=== PATIENT | female | born 1990 | race Two or more races ===

== ENCOUNTER 2018-10-13 18:06 | Emergency (ER) | payer OTHER ==
[2018-10-13] MEDS ORDERED: Sodium Chloride 0.9% 1,000 ML IV ONE (18:08)
[2018-10-13] MEDS ORDERED: Albuterol/Ipratropium 3.0-0.5 MG/3 ML Neb Soln NEB ONE (18:27)
[2018-10-13 18:51] LABS: CHLORIDE,CL 103 mmol/L (98-107); SODIUM,NA 136 mmol/L (136-145)
--- NOTE | 2018-10-13 19:58 | CR ---
CHEST 2 VIEWS INDICATION: Cough. IMPRESSION: Normal heart size and vascular pattern. Lungs are clear. No pneumothorax or pleural effusion. Dictated by Abelardo Fernandes MD @ Oct 13 2018 7:55PM Signed by Dr. Abelardo Fernandes @ Oct 13 2018 7:55PM
--- NOTE | 2018-10-13 20:11 | US ---
INDICATION : and right upper quadrant pain TECHNIQUE : Ultrasound of the limited abdomen. Grayscale and color doppler. COMPARISON : No comparison FINDINGS: Gallbladder: Multiple layering stones are present in the gallbladder. Common bile duct: 3 mm. Right kidney: 10.6 cm. Pancreas: Difficult visualization due to overlying bowel gas. Gallbladder wall thickness: 2 mm upper normal. IMPRESSION: 1. Gallstones. No gallbladder wall thickening. 2. No ductal dilatation. 3. The supervisor hard candy did not mention if there was a sonographic Eason sign. Dictated by Abelardo Fernandes MD @ Oct 13 2018 8:09PM Signed by Dr. Abelardo Fernandes @ Oct 13 2018 8:09PM
--- NOTE | 2018-10-13 20:13 | US ---
INDICATION : Twenty-three week with abdominal pain TECHNIQUE : Ultrasound of the limited obstetrical. Grayscale and color doppler. COMPARISON : No comparison FINDINGS: position: position is vertex. Placenta: Placenta is anterior. No signs of a previa. heart rate: heart rate is 144 beats per minute. Cervix: The cervix is 3.2 cm in close. ZULMA: 9.4 cm normal. The single deepest pocket measures 3.4 centimeters. IMPRESSION: No acute sonographic or /placental abnormality. Cephalic position and normal amniotic fluid volume. Dictated by Abelardo Fernandes MD @ Oct 13 2018 8:09PM Signed by Dr. Abelardo Fernandes @ Oct 13 2018 8:11PM
--- NOTE | 2018-10-13 20:24 | EDM.PDOC ---
ED HPI GENERAL MEDICAL PROBLEM - General Chief Complaint: Chest Pain Stated Complaint: CHEST PAIN Time Seen by Provider: 10/13/18 18:08 Source of Information: Reports: Patient History Limitations: Reports: No Limitations - History of Present Illness INITIAL COMMENTS - FREE TEXT/NARRATIVE: HISTORY AND PHYSICAL: History of present illness: Patient is a 28-year-old female who presents to the ED today with concern of right upper quadrant pain that occurred just prior to arrival to the ED. Patient states she was napping and awoke concern of having 10 out of 10 right upper quadrant pain. Patient states she is approximately 23 weeks gestation and follows with Dr. Lam at [facility]. Patient states she's has had a normal with care. Patient states she has had some slight nausea with the pain but denies any other symptoms. Patient denies any health history. Patient denies fever, chills, chest pain, shortness of breath, or cough. Denies headache, neck stiff ness, change in vision, syncope, or near syncope. Denies vomiting, diarrhea, constipation, or dysuria. Has not noted any blood in urine or stool. Patient has been eating and drinking appropriately prior to onset of symptoms. Review of systems: As per history of present illness and below otherwise all systems reviewed and negative. Past medical history: As per history of present illness and as reviewed below otherwise noncontributory. Surgical history: As per history of present illness and as reviewed below otherwise noncontributory. Social history: See social history for further information Family history: As per history of present illness and as reviewed below otherwise noncontributory. Physical exam: General: Patient is alert, oriented, and in no acute distress. Patient sitting comfortably on exam table. HEENT: Atraumatic, normocephalic, pupils equal and reactive bilaterally, negative for conjunctival pallor or scleral icterus, mucous membranes moist, TMs normal bilaterally, throat clear, neck supple, nontender, trachea midline. No drooling or trismus noted. No meningeal signs. No hot potato voice noted. Lungs: Mild wheezing to auscultation of the lung bases, breath sounds equal bilaterally, chest nontender. Heart: S1S2, regular rate and rhythm without overt murmur Abdomen: Soft, nondistended. Severe pain to palpation of the right upper quadrant with guarding. Positive Eason sign. Negative for masses or hepatosplenomegaly. Negative for costovertebral tenderness. Pelvis: Stable nontender. Genitourinary: Deferred. Rectal: Deferred. Skin: Intact, warm, dry. No lesions or rashes noted. Extremities: Atraumatic, negative for cords or calf pain. Neurovascular unremarkable. Neuro: Awake, alert, oriented. Cranial nerves II through XII unremarkable. Cerebellum unremarkable. Motor and sensory unremarkable throughout. Exam nonfocal. Notes: Dr. Ridley verbally involved in patient care. Dr. Prado, obgyn unit control worker, consult on patient and discussed using [place] for narcotic management for breakthrough pain and Tylenol for [id number] pain. 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 Voices understanding and is agreeable to plan of care. Denies any further questions or concerns at this time. Diagnostics: CBC, CMP, UA, EKG, troponin, chest x-ray, right upper quadrant ultrasound, limited OB ultrasound, lipase Therapeutics: saline, duoneb Prescription: [place] (#15) Impression: RUQ pain, unspecified cannot r/o biliary dyskinesia Plan: 1. Low fat diet. You can use Tylenol for mild-moderate pain. [place] for moderate to severe pain. 2. Follow up with your obgyn and primary care provider as discussed. Return to ED as needed and as discussed. Definitive disposition and diagnosis as appropriate pending reevaluation and review of above. chest Pain Score (Numeric/FACES): 7 - Related Data Allergies Allergy/AdvReac Type Severity Reaction Status Date / Time No Known Allergies Allergy Verified 01/29/16 13:40 Home Meds: Home Meds Acetaminophen/HYDROcodone [[place] 325-5 MG] 1 tab PO Q6H PRN #15 tablet 10/13/18 [Rx] Pnv No.95/Ferrous Fum/Folic AC [ Caplet] 1 tab PO DAILY 10/13/18 [ History] Sertraline [Zoloft] 75 mg PO DAILY 10/13/18 [History] Past Medical History Respiratory History: Reports: Asthma Social & Family History - Tobacco Use Smoking Status *Q: Never Smoker - Recreational Drug Use Recreational Drug Use: No ED ROS GENERAL - Review of Systems Review Of Systems: ROS reveals no pertinent complaints other than HPI. ED EXAM, GENERAL - Physical Exam Exam: See Below (See dictation) Course - Vital Signs Last Recorded V/S: Last Vital Signs Temp 36.2 C 10/13/18 19:24 Pulse 88 10/13/18 20:26 Resp 15 10/13/18 20:26 BP 116/72 10/13/18 20:26 Pulse Ox 96 10/13/18 20:26 - Orders/Labs/Meds Orders: Active Orders 24 hr Category Date Time Status Cardiac Monitoring [RC] . DIRECTED Care 10/13/18 18:08 Active EKG Documentation Completion [RC] STAT Care 10/13/18 18:08 Active Labs: Laboratory Tests 10/13/18 10/13/18 10/13/18 Range/Units 18:15 18:15 18:15 WBC 10.30 (4.0-11.0) K/uL RBC 4.03 L (4.30-5.90) M/uL Hgb 12.6 (12.0-16.0) g/dL Hct 37.3 (36.0-46.0) % MCV 92.6 (80.0-98.0) fL MCH 31.3 (27.0-32.0) pg MCHC 33.8 (31.0-37.0) g/dL RDW Std Deviation 44.5 (28.0-62.0) fl RDW Coeff of Miguel 13 (11.0-15.0) % Plt Count 298 (150-400) K/uL MPV 9.70 (7.40-12.00) fL Neut % (Auto) 65.5 (48.0-80.0) % Lymph % (Auto) 26.5 (16.0-40.0) % [place] % (Auto) 5.9 (0.0-15.0) % Eos % (Auto) 1.9 (0.0-7.0) % Baso % (Auto) 0.2 (0.0-1.5) % Neut # (Auto) 6.7 H (1.4-5.7) K/uL Lymph # (Auto) 2.7 H (0.6-2.4) K/uL [place] # (Auto) 0.6 (0.0-0.8) K/uL Eos # (Auto) 0.2 (0.0-0.7) K/uL Baso # (Auto) 0.0 (0.0-0.1) K/uL Nucleated RBC % 0.0 /100WBC Nucleated RBCs # 0 K/uL Sodium 136 (136-145) mmol/L Potassium 3.6 (3.5-5.1) mmol/L Chloride 103 (98-107) mmol/L Carbon Dioxide 23.5 (21.0-32.0) mmol/L BUN 6 L (7.0-18.0) mg/dL Creatinine 0.5 L (0.6-1.0) mg/dL Est Cr Clr Drug Dosing 156.81 mL/min Estimated GFR (MDRD) > 60.0 ml/min Glucose 100 (74-106) mg/dL Calcium 9.1 (8.5-10.1) mg/dL Total Bilirubin 0.2 (0.2-1.0) mg/dL AST 18 (15-37) IU/L ALT 26 (14-63) IU/L Alkaline Phosphatase 105 (46-116) U/L Troponin I < 0.050 (0.000-0.056) ng/mL Total Protein 7.3 (6.4-8.2) g/dL Albumin 2.9 L (3.4-5.0) g/dL Globulin 4.4 H (2.6-4.0) g/dL Albumin/Globulin Ratio 0.7 L (0.9-1.6) Amylase 54 (25-115) U/L Lipase 172 (73-393) U/L Urine Color Urine Appearance Urine pH (5.0-8.0) Ur Specific [place] (1.001-1.035) Urine Protein (NEGATIVE) mg/dL Urine Glucose (UA) (NEGATIVE) mg/dL Urine Ketones (NEGATIVE) mg/dL Urine Occult Blood (NEGATIVE) Urine Nitrite (NEGATIVE) Urine Bilirubin (NEGATIVE) Urine Urobilinogen (<2.0) EU/dL Ur Leukocyte Esterase (NEGATIVE) Urine HCG, Qual (NEGATIVE) 10/13/18 10/13/18 Range/Units 18:30 18:30 WBC (4.0-11.0) K/uL RBC (4.30-5.90) M/uL Hgb (12.0-16.0) g/dL Hct (36.0-46.0) % MCV (80.0-98.0) fL MCH (27.0-32.0) pg MCHC (31.0-37.0) g/dL RDW Std Deviation (28.0-62.0) fl RDW Coeff of Miguel (11.0-15.0) % Plt Count (150-400) K/uL MPV (7.40-12.00) fL Neut % (Auto) (48.0-80.0) % Lymph % (Auto) (16.0-40.0) % [place] % (Auto) (0.0-15.0) % Eos % (Auto) (0.0-7.0) % Baso % (Auto) (0.0-1.5) % Neut # (Auto) (1.4-5.7) K/uL Lymph # (Auto) (0.6-2.4) K/uL [place] # (Auto) (0.0-0.8) K/uL Eos # (Auto) (0.0-0.7) K/uL Baso # (Auto) (0.0-0.1) K/uL Nucleated RBC % /100WBC Nucleated RBCs # K/uL Sodium (136-145) mmol/L Potassium (3.5-5.1) mmol/L Chloride (98-107) mmol/L Carbon Dioxide (21.0-32.0) mmol/L BUN (7.0-18.0) mg/dL Creatinine (0.6-1.0) mg/dL Est Cr Clr Drug Dosing mL/min Estimated GFR (MDRD) ml/min Glucose (74-106) mg/dL Calcium (8.5-10.1) mg/dL Total Bilirubin (0.2-1.0) mg/dL AST (15-37) IU/L ALT (14-63) IU/L Alkaline Phosphatase (46-116) U/L Troponin I (0.000-0.056) ng/mL Total Protein (6.4-8.2) g/dL Albumin (3.4-5.0) g/dL Globulin (2.6-4.0) g/dL Albumin/Globulin Ratio (0.9-1.6) Amylase (25-115) U/L Lipase (73-393) U/L Urine Color YELLOW Urine Appearance CLEAR Urine pH 6.0 (5.0-8.0) Ur Specific [place] 1.020 (1.001-1.035) Urine Protein NEGATIVE (NEGATIVE) mg/dL Urine Glucose (UA) NEGATIVE (NEGATIVE) mg/dL Urine Ketones 15 H (NEGATIVE) mg/dL Urine Occult Blood NEGATIVE (NEGATIVE) Urine Nitrite NEGATIVE (NEGATIVE) Urine Bilirubin NEGATIVE (NEGATIVE) Urine Urobilinogen 0.2 (<2.0) EU/dL Ur Leukocyte Esterase NEGATIVE (NEGATIVE) Urine HCG, Qual POSITIVE (NEGATIVE) Meds: Medications Discontinued Medications Generic Name Dose Route Start Last Admin Trade Name Freq PRN Reason Stop Dose Admin Albuterol/Ipratropium 3 ml 10/13/18 18:27 10/13/18 18:34 Duoneb 3.0-0.5 Mg/3 Ml NEB 10/13/18 18:28 3 ml ONETIME ONE Administration Sodium Chloride 1,000 mls @ 999 mls/hr 10/13/18 18:08 10/13/18 18:26 Normal Saline IV 10/13/18 19:08 999 mls/hr BOLUS ONE Administration Departure - Departure Time of Disposition: 20:25 Disposition: Home, Self-Care 01 Clinical Impression: Right upper quadrant abdominal pain Qualifiers: Weeks of gestation: 23 weeks Qualified Code(s): Z3A.23 - 23 weeks gestation of - Discharge Information Prescriptions: Acetaminophen/HYDROcodone [[place] 325-5 MG] 1 tab PO Q6H PRN #15 tablet PRN Reason: Pain (Severe 7-10) Instructions: Gallbladder Eating Plan, Second Trimester of , Easy-to- Read Referrals: PCP,Unknown [Primary Care Provider] - Forms: ED Department Discharge Additional Instructions: The following information is given to patients seen in the emergency department who are being discharged to home. This information is to outline your options for follow-up care. We provide all patients seen in our emergency department with a follow-up referral. The need for follow-up, as well as the timing and circumstances, are variable depending upon the specifics of your emergency department visit. If you don't have a primary care physician on staff, we will provide you with a referral. We always advise you to contact your personal physician following an emergency department visit to inform them of the circumstance of the visit and for follow-up with them and/or the need for any referrals to a consulting specialist. The emergency department will also refer you to a specialist when appropriate. This referral assures that you have the opportunity for follow-up care with a specialist. All of these measure are taken in an effort to provide you with optimal care, which includes your follow-up. Under all circumstances we always encourage you to contact your private physician who remains a resource for coordinating your care. When calling for follow-up care, please make the office aware that this follow-up is from your recent emergency room visit. If for any reason you are refused follow-up, please contact the [facility] Emergency Department at and asked to speak to the emergency department charge nurse. [facility] Primary Care [address], [place] [address] [facility] [address] [place] [id number] [facility] [address] [place] [address] 1. Low fat diet. You can use Tylenol for mild-moderate pain. [place] for moderate to severe pain. 2. Follow up with your obgyn and primary care provider as discussed. Return to ED as needed and as discussed. - My Orders Last 24 Hours: My Active Orders 10/13/18 18:08 Cardiac Monitoring [RC] . DIRECTED EKG Documentation Completion [RC] STAT - Assessment/Plan Last 24 Hours: My Active Orders 10/13/18 18:08 Cardiac Monitoring [RC] . DIRECTED EKG Documentation Completion [RC] STAT
== END 2018-10-13 20:39 | disposition home or self-care (01) ==
LOC: MW.ED 18:06
DX: O99.89 Other specified diseases and conditions complicating pregnancy, childbirth and the puerperium (principal); R10.11 Right upper quadrant pain; Z3A.23 23 weeks gestation of pregnancy; Z79.899 Other long term (current) drug therapy
CPT/HCPCS: 36415; 71046; 76705; 76815; 80053; 81003; 81025; 82150; 83690; 84484; 85025; 93005; 96360; 99285; J7040; J7620-GY

== ENCOUNTER 2019-01-29 11:00 | Inpatient (IN) | payer OTHER ==
[2019-01-29] MEDS ORDERED: Lidocaine 1% 50 ML MDV INJECT PRN (11:29)
[2019-01-29] MEDS ORDERED: Methylergonovine 0.2 MG/1 ML Amp IM PRN (11:29)
[2019-01-29] MEDS ORDERED: Sodium Chloride 0.9% 2.5 ML Syringe FLUSH PRN (11:29)
[2019-01-29] MEDS ORDERED: Nalbuphine 10 MG/1 ML Vial IVPUSH PRN (11:29)
[2019-01-29] MEDS ORDERED: Misoprostol 200 MCG Tab PO PRN (11:29)
[2019-01-29] MEDS ORDERED: Sodium Chloride 0.9% 10 ML SDV IV PRN (11:29)
[2019-01-29] MEDS ORDERED: Tranexamic Acid 1,000 MG in Sodium Chloride 0.9% 100 ML IV PRN (11:29)
[2019-01-29] MEDS ORDERED: Carboprost Tromethamine 250 MCG/1 ML Amp IM PRN (11:29)
[2019-01-29] MEDS ORDERED: Terbutaline 1 MG/ML SDV SUBCUT PRN (11:29)
[2019-01-29] MEDS ORDERED: Sodium Chloride 0.9% 10 ML Syringe FLUSH PRN (11:29)
[2019-01-29] MEDS ORDERED: Butorphanol 1 MG/ML SDV IVPUSH PRN (11:29)
[2019-01-29] MEDS ORDERED: Water For Irrigation,Sterile 1,000 ML Container IRR PRN (11:29)
[2019-01-29] MEDS ORDERED: Oxytocin/0.9 % Sodium Chloride 30 UNIT/500 ML BAG IV SCH ×2 (11:30)
[2019-01-29] MEDS ORDERED: hydrOXYzine Pamoate 25 MG Cap ONE (11:58)
[2019-01-29] MEDS ORDERED: hydrOXYzine Pamoate 25 MG Cap PO ONE (12:02)
[2019-01-29] MEDS: Misoprostol 25 MCG (1/4 of 100 MCG) Tab VAG PRN ×3 (12:10→20:06)
[2019-01-30] MEDS: Misoprostol 25 MCG (1/4 of 100 MCG) Tab VAG PRN ×2 (00:30→04:44)
[2019-01-30] MEDS: Lactated Ringers 1,000 ML IV SCH ×4 (09:12→23:04)
[2019-01-30] MEDS ORDERED: Ondansetron 4 MG/2 ML SDV IVPUSH PRN (13:54)
--- NOTE | 2019-01-30 15:56 | PCM.PREANE ---
Preanesthetic Assessment - Anesthesia/Transfusion/Family Hx Anesthesia History: No Prior Anesthesia Family History of Anesthesia Reaction: No Transfusion History: No Prior Transfusion(s) - Review of Systems General: No Symptoms Pulmonary: No Symptoms Cardiovascular: No Symptoms Gastrointestinal: No Symptoms Neurological: No Symptoms Other: Reports: None - Physical Assessment Height: 5 ft 5 in Weight: 93.44 kg ASA Class: 2 Mental Status: Alert & Oriented x3 Dentition: Reports: Normal Dentition ROM/Head Extension: Full Lungs: Clear to Auscultation, Normal Respiratory Effort Cardiovascular: Regular Rhythm - Lab Values: Laboratory Last Values WBC 8.60 K/uL (4.0-11.0) 01/29/19 11:50 RBC 3.99 M/uL (4.30-5.90) L 01/29/19 11:50 Hgb 12.1 g/dL (12.0-16.0) 01/29/19 11:50 Hct 35.7 % (36.0-46.0) L 01/29/19 11:50 MCV 89.5 fL (80.0-98.0) 01/29/19 11:50 MCH 30.3 pg (27.0-32.0) 01/29/19 11:50 MCHC 33.9 g/dL (31.0-37.0) 01/29/19 11:50 RDW Std Deviation 45.0 fl (28.0-62.0) 01/29/19 11:50 RDW Coeff of Miguel 14 % (11.0-15.0) 01/29/19 11:50 Plt Count 246 K/uL (150-400) 01/29/19 11:50 MPV 11.20 fL (7.40-12.00) 01/29/19 11:50 Nucleated RBC % 0.0 /100WBC 01/29/19 11:50 Nucleated RBCs # 0 K/uL 01/29/19 11:50 Blood Type A POSITIVE 01/29/19 11:50 Antibody Screen NEGATIVE 01/29/19 11:50 - Allergies Allergies/Adverse Reactions: Allergies Allergy/AdvReac Type Severity Reaction Status Date / Time No Known Allergies Allergy Verified 01/29/16 13:40 - Acknowledgements Anesthesia Type Planned: Epidural Pt an Appropriate Candidate for the Planned Anesthesia: Yes Alternatives and Risks of Anesthesia Discussed w Pt/Guardian: Yes Pt/Guardian Understands and Agrees with Anesthesia Plan: Yes PreAnesthesia Questionnaire Cardiovascular History: Reports: None Respiratory History: Reports: None, Asthma Gastrointestinal History: Reports: None, Cholelithiasis Genitourinary History: Reports: None 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: : 1 Para: 0 LMP (Approximate): Musculoskeletal History: Reports: None Neurological History: Reports: None Psychiatric History: Reports: Anxiety, Depression Endocrine/Metabolic History: Reports: None Hematologic History: Reports: None - Past Surgical History Head Surgeries/Procedures: Reports: None - SUBSTANCE USE Smoking Status *Q: Never Smoker Second Hand Smoke Exposure: No - HOME MEDS Home Medications: Home Meds Acetaminophen/HYDROcodone [[place] 325-5 MG] 1 tab PO Q6H PRN #15 tablet 10/13/18 [Rx] Pnv No.95/Ferrous Fum/Folic AC [ Caplet] 1 tab PO DAILY 10/13/18 [ History] Sertraline [Zoloft] 75 mg PO DAILY 10/13/18 [History] - CURRENT (IN HOUSE) MEDS Current Meds: Current Medications Butorphanol Tartrate (Stadol) 1 mg IVPUSH Q1H PRN PRN Reason: Pain Carboprost Tromethamine (Hemabate Ds) 250 mcg IM ASDIRECTED PRN PRN Reason: Post Hemorrhage Lactated Ringer's (Ringers, Lactated) 1,000 mls @ 150 mls/hr IV ASDIRECTED ARLETH Last Admin: 01/30/19 14:02 Dose: 150 mls/hr Oxytocin/Sodium Chloride (Oxytocin 30 Unit/500 Ml-Ns) 30 unit in 500 mls @ 500 mls/hr IV TITRATE ARLETH Oxytocin/Sodium Chloride (Oxytocin 30 Unit/500 Ml-Ns) 30 unit in 500 mls @ 2 mls/hr IV TITRATE ARLETH; Protocol Last Titration: 01/30/19 14:22 Dose: 12 munits/min, 12 mls/hr Tranexamic Acid 1,000 mg/ (Sodium Chloride) 110 mls @ 660 mls/hr IV ONETIME PRN PRN Reason: Bleeding Lidocaine HCl (Xylocaine 1%) 50 ml INJECT ONETIME PRN PRN Reason: Laceration repair Methylergonovine Maleate (Methergine) 0.2 mg IM ASDIRECTED PRN PRN Reason: Post Hemorrhage Misoprostol (Cytotec) 200 mcg PO ONETIME PRN PRN Reason: Post Hemorrhage Misoprostol (Cytotec) 25 mcg VAG Q4H PRN PRN Reason: Cervical Ripening Last Admin: 01/30/19 04:44 Dose: 25 mcg Nalbuphine HCl (Nubain) 10 mg IVPUSH Q1H PRN PRN Reason: Pain (severe 7-10) Ondansetron HCl (Zofran) 4 mg IVPUSH Q4H PRN PRN Reason: Nausea/Vomiting Last Admin: 01/30/19 14:00 Dose: 4 mg Sodium Chloride (Saline Flush) 10 ml FLUSH ASDIRECTED PRN PRN Reason: Keep Vein Open Sodium Chloride (Saline Flush) 2.5 ml FLUSH ASDIRECTED PRN PRN Reason: Keep Vein Open Sodium Chloride (Normal Saline) 10 ml IV ASDIRECTED PRN PRN Reason: IV Use Sterile Water (Sterile Water For Irrigation) 1,000 ml IRR ASDIRECTED PRN PRN Reason: delivery Terbutaline Sulfate (Brethine) 0.25 mg SUBCUT ASDIRECTED PRN PRN Reason: Tacysystole Discontinued Medications Hydroxyzine Pamoate (Vistaril) Confirm Administered Dose 50 mg .ROUTE .STK-MED ONE Stop: 01/29/19 11:59 Last Admin: 01/29/19 19:45 Dose: Not Given Hydroxyzine Pamoate (Vistaril) 50 mg PO ONETIME ONE Stop: 01/29/19 12:03 Last Admin: 01/29/19 12:24 Dose: 50 mg Fentanyl/Bupivacaine HCl (Pwtjpmfm-Thfjn-Yi 2 Mcg/Ml-0.125%) Confirm Administered Dose 100 mls @ as directed .ROUTE .STK-MED ONE Stop: 01/30/19 15:09
[2019-01-30] MEDS ORDERED: Acetaminophen 500 MG Tab PO ONE (20:29)
--- NOTE | 2019-01-30 22:11 | PCM.SN ---
- Free Text/Narrative Note: Called at 2136 to change an epidural bag for labor epidural. Bag had run out. Bag replaced. Pt. given a 5ml bolus at 2200 since she become slightly uncomfortable from the pause in the continuous flow of the medicine. Pt. was comfortable after the bolus. Care resumed by OB staff.
[2019-01-31] MEDS ORDERED: Aluminum Hydroxide/Magnesium Hydroxide/Simethicone Susp 30 ML Cup PO PRN (01:36)
[2019-01-31] MEDS ORDERED: Docusate Sodium 100 MG Cap PO PRN (01:36)
[2019-01-31] MEDS ORDERED: Lanolin 100% Cream 7 GM Tube TOP PRN (01:36)
[2019-01-31] MEDS ORDERED: oxyCODONE 5 MG Tab PO PRN (01:36)
[2019-01-31] MEDS ORDERED: Acetaminophen 500 MG Tab PO PRN ×2 (01:36)
[2019-01-31] MEDS ORDERED: Ibuprofen 400 MG Tab PO PRN (01:36)
[2019-01-31] MEDS ORDERED: Witch Hazel Medicated Pads 40/Jar TOP PRN (01:36)
[2019-01-31] MEDS ORDERED: Bisacodyl 10 MG Supp RECTAL PRN (01:36)
[2019-01-31] MEDS ORDERED: Benzocaine/Menthol 20%-0.5% Spray 78 GM Cannister TOP PRN (01:36)
--- NOTE | 2019-01-31 01:44 | PCM.OPNOTE ---
- General Post-Op/Procedure Note Date of Surgery/Procedure: 01/31/19 Operative Procedure(s): /1st MLL repaired Findings: Viable female APGARs 8, 9 weight pending. Spontaneous delivery intact placenta with 3V cord Pre Op Diagnosis: 39 week IUP. Oligohydramnios Post-Op Diagnosis: Same Anesthesia Technique: Epidural Primary Surgeon: Mely Badillo EBL in mLs: 250 Complications: none known Condition: Good Free Text/Narrative:: Dictation [id number]
--- NOTE | 2019-01-31 05:16 | OR ---
SURGEON: Mely Badillo M.D. DATE OF PROCEDURE: 01/31/2019 PREOPERATIVE DIAGNOSES: 1. 39 week intrauterine . 2. Oligohydramnios. POSTOPERATIVE DIAGNOSES: 1. 39 week intrauterine . 2. Oligohydramnios. PROCEDURE: Spontaneous vaginal delivery, first-degree midline laceration repaired. PRIMARY SURGEON: Meyl Badillo M.D. ANESTHESIA: Epidural. ESTIMATED BLOOD LOSS: 250 mL. COMPLICATIONS: None. FINDINGS: Viable female, score 8 at 1 minute and 9 at 5 minute. Weight is pending. Spontaneous delivery, intact placenta, 3-vessel cord. DISPOSITION: nursery, mom in LDRP. PROCEDURE DETAILS: This is a 28-year-old primigravida at 39 weeks' gestational age, who presented after being evaluated in clinic and was found to have oligohydramnios. Therefore, she was admitted to Labor and Delivery. Routine labs were drawn. She had a category 1 heart tracing. The patient initially underwent Cytotec ripening followed by mechanical balloon dilation. She underwent rupture of membranes with the balloon introduction. I assumed care of the patient in the late morning of 01/30/2019. At that time, she was found to be 4 cm, 60% effaced, -2 station, on Pitocin. The patient progressed through the afternoon hours to approximately 5 cm, became increasingly uncomfortable, underwent regional anesthesia in the from of epidural, became more comfortable. Shortly after 5 p.m., she was found to be 4 to 5 cm, 80% effaced, -2 station. An IUPC was placed to help monitor contractions more closely. The patient tolerated this well. The patient continued to progress through the evening hours and shortly after a minute was found to be complete, 100% effaced, at +1 station, and began pushing efforts. She pushed adequately for the next approximately 4 to 5 minutes to a +3 station. I was called for delivery. Upon my arrival, the patient was placed in modified dorsal lithotomy position, was prepped and draped in the usual aseptic manner. She was able to continue with pushing efforts, deliver the 's head atraumatically and spontaneously, followed by anterior shoulder, posterior shoulder, and remaining body. The 's oropharynx and nares bulb suctioned. The was handed off to her mother with attending nursing staff at the side. After a delay, the cord was clamped x2 and cut. Cord arterial, cord venous, cord blood samples were obtained. Light pressure was applied, while the placenta was delivered spontaneously intact. Vigorous fundal uterine massage was then applied while 30 units of Pitocin was delivered in 500 mL IV fluid. Upon inspection of cervix, vaginal sidewall, and perineum, there was found to be a first-degree introital laceration. This was repaired using 3-0 Vicryl. Hemostasis appeared evident. The patient tolerated the repair well. Sponge and instrument count was correct. The patient will remain in LDRP. in nursery. HOMAR / PAMELA /[id number]
[2019-01-31] MEDS: Ibuprofen 800 MG Tab PO PRN (15:24)
[2019-02-01] MEDS: Ibuprofen 800 MG Tab PO PRN (04:33)
--- NOTE | 2019-02-01 09:11 | PCM.PNPP ---
- General Info Date of Service: 02/01/19 Subjective Update: 28yo P1 s/p , ambulating , voiding and Functional Status: Reports: Pain Controlled, Tolerating Diet, Ambulating, Urinating - Review of Systems General: Reports: No Symptoms HEENT: Reports: No Symptoms Pulmonary: Reports: No Symptoms Cardiovascular: Reports: No Symptoms Gastrointestinal: Reports: No Symptoms Genitourinary: Reports: No Symptoms Musculoskeletal: Reports: No Symptoms Skin: Reports: No Symptoms Neurological: Reports: No Symptoms Psychiatric: Reports: No Symptoms - General Info Date of Service: 02/01/19 - Patient Data Vital Signs - Most Recent: Last Vital Signs Temp 36.6 C 02/01/19 07:43 Pulse 57 L 02/01/19 07:43 Resp 17 02/01/19 07:43 BP 110/74 02/01/19 07:43 Pulse Ox 98 02/01/19 07:43 Weight - Most Recent: 93.44 kg Lab Results - Last 24 Hours: Laboratory Results - last 24 hr 02/01/19 Range/Units 05:56 Hgb 11.6 L (12.0-16.0) g/dL Hct 35.1 L (36.0-46.0) % Med Orders - Current: Current Medications Acetaminophen (Tylenol Extra Strength) 500 mg PO Q4H PRN PRN Reason: Pain Acetaminophen (Tylenol Extra Strength) 1,000 mg PO Q4H PRN PRN Reason: Pain Al Hydroxide/Mg Hydroxide (Mag-Al Plus) 30 ml PO Q8H PRN PRN Reason: Heartburn Benzocaine/Menthol (Dermoplast Pain Relief 20%-0.5% Severy) 78 gm TOP ASDIRECTED PRN PRN Reason: Perineal Comfort Measure Last Admin: 01/31/19 03:39 Dose: 1 can Bisacodyl (Dulcolax) 10 mg RECTAL ONETIME PRN PRN Reason: Constipation Carboprost Tromethamine (Hemabate Ds) 250 mcg IM ASDIRECTED PRN PRN Reason: Post Hemorrhage Docusate Sodium (Colace) 100 mg PO BID PRN PRN Reason: Constipation Emollient Ointment (Lansinoh Hpa) 0 gm TOP ASDIRECTED PRN PRN Reason: Sore Nipples Last Admin: 01/31/19 03:39 Dose: 1 tube Lactated Ringer's (Ringers, Lactated) 1,000 mls @ 150 mls/hr IV ASDIRECTED ARLETH Last Admin: 01/30/19 23:04 Dose: 150 mls/hr Oxytocin/Sodium Chloride (Oxytocin 30 Unit/500 Ml-Ns) 30 unit in 500 mls @ 500 mls/hr IV TITRATE ARLETH Last Admin: 01/31/19 01:34 Dose: 999 mls/hr Oxytocin/Sodium Chloride (Oxytocin 30 Unit/500 Ml-Ns) 30 unit in 500 mls @ 2 mls/hr IV TITRATE ARLETH; Protocol Last Titration: 01/31/19 01:14 Dose: 999 mls/hr Tranexamic Acid 1,000 mg/ (Sodium Chloride) 110 mls @ 660 mls/hr IV ONETIME PRN PRN Reason: Bleeding Ibuprofen (Motrin) 400 mg PO Q4H PRN PRN Reason: Pain Ibuprofen (Motrin) 800 mg PO Q6H PRN PRN Reason: Pain Last Admin: 02/01/19 04:33 Dose: 800 mg Methylergonovine Maleate (Methergine) 0.2 mg IM ASDIRECTED PRN PRN Reason: Post Hemorrhage Ondansetron HCl (Zofran) 4 mg IVPUSH Q4H PRN PRN Reason: Nausea/Vomiting Last Admin: 01/30/19 14:00 Dose: 4 mg Oxycodone HCl (Oxycodone) 5 mg PO Q2H PRN PRN Reason: Pain Sodium Chloride (Saline Flush) 10 ml FLUSH ASDIRECTED PRN PRN Reason: Keep Vein Open Sodium Chloride (Saline Flush) 2.5 ml FLUSH ASDIRECTED PRN PRN Reason: Keep Vein Open Sodium Chloride (Normal Saline) 10 ml IV ASDIRECTED PRN PRN Reason: IV Use Sterile Water (Sterile Water For Irrigation) 1,000 ml IRR ASDIRECTED PRN PRN Reason: delivery Last Admin: 01/31/19 01:07 Dose: 1,000 ml Witch Gege (Tucks) 1 pad TOP ASDIRECTED PRN PRN Reason: comfort care Last Admin: 01/31/19 03:39 Dose: 1 tub Discontinued Medications Acetaminophen (Tylenol Extra Strength) 1,000 mg PO ONETIME ONE Stop: 01/30/19 20:30 Last Admin: 01/30/19 20:41 Dose: 1,000 mg Butorphanol Tartrate (Stadol) 1 mg IVPUSH Q1H PRN PRN Reason: Pain Hydroxyzine Pamoate (Vistaril) Confirm Administered Dose 50 mg .ROUTE .STK-MED ONE Stop: 01/29/19 11:59 Last Admin: 01/29/19 19:45 Dose: Not Given Hydroxyzine Pamoate (Vistaril) 50 mg PO ONETIME ONE Stop: 01/29/19 12:03 Last Admin: 01/29/19 12:24 Dose: 50 mg Fentanyl/Bupivacaine HCl (Dodkuuhm-Jpvkx-Yb 2 Mcg/Ml-0.125%) Confirm Administered Dose 100 mls @ as directed .ROUTE .STActivity Rocket-MED ONE Stop: 01/30/19 15:09 Last Admin: 01/30/19 20:33 Dose: Not Given Fentanyl/Bupivacaine HCl (Odffflow-Udqlx-Ia 2 Mcg/Ml-0.125%) Confirm Administered Dose 100 mls @ as directed .ROUTE .Centice-MED ONE Stop: 01/30/19 21:55 Last Admin: 01/31/19 02:56 Dose: Not Given Lidocaine HCl (Xylocaine 1%) 50 ml INJECT ONETIME PRN PRN Reason: Laceration repair Misoprostol (Cytotec) 200 mcg PO ONETIME PRN PRN Reason: Post Hemorrhage Misoprostol (Cytotec) 25 mcg VAG Q4H PRN PRN Reason: Cervical Ripening Last Admin: 01/30/19 04:44 Dose: 25 mcg Nalbuphine HCl (Nubain) 10 mg IVPUSH Q1H PRN PRN Reason: Pain (severe 7-10) Terbutaline Sulfate (Brethine) 0.25 mg SUBCUT ASDIRECTED PRN PRN Reason: Tacysystole - Interaction Support Person: - Recovery Exam Fundal Tone: Firm Fundal Level: 1 Fingerbreadths Below Umbilicus Fundal Placement: Midline Lochia Amount: Scant Lochia Color: Rubra/Red Perineum Description: Intact, Minimal Bruising/Swelling, Other (see below) Other Perinuem Description: 1st degree laceration Episiotomy/Laceration: Approximated Bladder Status: Voiding Urinary Elimination: Voided - Exam General: Alert HEENT: Pupils Equal Lungs: Clear to Auscultation Cardiovascular: Regular Rate, Regular Rhythm GI/Abdominal Exam: Normal Bowel Sounds Extremities: Normal Inspection Neurological: No New Focal Deficit - Problem List & Annotations (1) Vaginal delivery SNOMED Code(s): 340778204 Code(s): O80 - ENCOUNTER FOR FULL-TERM UNCOMPLICATED DELIVERY Status: Acute Current Visit: Yes - Problem List Review Problem List Initiated/Reviewed/Updated: Yes - Assessment Assessment:: 28yo P1 s/p PPD1 ambulating , voiding and - Plan Plan:: Routine Discharge home
== END 2019-02-01 15:52 | disposition home or self-care (01) | DRG 807 ==
LOC: MW.OB 11:00 → OBSVTOIN 01-31 01:13 → MW.OB 01-31 04:18
PROVIDERS: ADMIT Obstetrics & Gynecology; ATTEND Obstetrics & Gynecology
PROC: 10E0XZZ Delivery of Products of Conception, External Approach (ICD-10-PCS; principal; 2019-01-31)
PROC: 4A1HXCZ Monitoring of Products of Conception, Cardiac Rate, External Approach (ICD-10-PCS; 2019-01-31)
PROC: 3E033VJ Introduction of Other Hormone into Peripheral Vein, Percutaneous Approach (ICD-10-PCS; 2019-01-31)
PROC: 10907ZC Drainage of Amniotic Fluid, Therapeutic from Products of Conception, Via Natural or Artificial Opening (ICD-10-PCS; 2019-01-31)
PROC: 10H07YZ Insertion of Other Device into Products of Conception, Via Natural or Artificial Opening (ICD-10-PCS; 2019-01-31)
PROC: 0HQ9XZZ Repair Perineum Skin, External Approach (ICD-10-PCS; 2019-01-31)
DX: O41.03X0 Oligohydramnios, third trimester, not applicable or unspecified (principal); O36.5930 Maternal care for other known or suspected poor fetal growth, third trimester, not applicable or unspecified; J45.909 Unspecified asthma, uncomplicated; O99.52 Diseases of the respiratory system complicating childbirth; F32.9 Major depressive disorder, single episode, unspecified; F41.9 Anxiety disorder, unspecified; O99.344 Other mental disorders complicating childbirth; O70.0 First degree perineal laceration during delivery; Z37.0 Single live birth; Z3A.39 39 weeks gestation of pregnancy
CPT/HCPCS: 36415; 51702; 59025; 59409; 82803; 85014; 85018; 85027; 86850; 86900; 86901; A9270-GY; J2405; J2590; J7120